=== PATIENT | male | born 1995 | race Caucasian/White ===

== ENCOUNTER 2017-05-09 07:54 | Emergency (ER) | payer OTHER ==
[~2017-05-09] VITALS: Ht 160 cm; Wt 54.5 kg
[2017-05-09 07:59] VITALS: Ht 160 cm; Wt 54.5 kg
[2017-05-09] MEDS ORDERED: HYDROmorphONE 1 MG/ML SYG IV STA ×2 (08:03→08:36)
[2017-05-09] MEDS ORDERED: ONDANSETRON 4 MG INJ IV STA (08:03)
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
--- NOTE | 2017-05-09 08:55 | RADRPT ---
PROCEDURE: Left shoulder series. CLINICAL INDICATION: Pain. TECHNIQUE: AP views of the shoulder were performed with internal and external rotation, as well as a transscapular Y view. COMPARISON: None. FINDINGS: Nondisplaced fracture of the left distal clavicle with associated overlying soft tissue swelling. T he glenohumeral and acromioclavicular joint spaces are intact. No findings of calcific tendonitis ar e present. IMPRESSION: Nondisplaced fracture of the left distal clavicle with associated overlying soft tissue swelling. RPTAT: QQ .Jasmeet Dawkins MD, Date Time Electronically viewed and signed by .Jasmeet Dawkins MD, on 05/09/2017 08:55 .M/
[2017-05-09] MEDS ORDERED: HYDR-902 PO (09:00)
[2017-05-09] MEDS ORDERED: ONDA4TAB14 PO (09:00)
[2017-05-09] MEDS ORDERED: IBUP800T25 PO (09:00)
[2017-05-09 09:07] VITALS: BP 114/97; PULSE 101; RESP 20; TEMP 98.3
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
== END 2017-05-09 09:08 | disposition home or self-care (01) ==
LOC: E/R 07:54
DX: S42.002A Fracture of unspecified part of left clavicle, initial encounter for closed fracture (principal); M25.512 Pain in left shoulder; V18.4XXA Pedal cycle driver injured in noncollision transport accident in traffic accident, initial encounter
CPT/HCPCS: 71010; 73000; 73030; 96374; 96375; J1170; J2405; Z7502

== ENCOUNTER 2017-05-17 17:38 | Emergency (ER) | payer OTHER ==
[~2017-05-17] VITALS: Ht 167.6 cm; Wt 58.5 kg
[~2017-05-17 17:38] MED LIST: HYDR-902 PO; IBUP800T25 PO; ONDA4TAB14 PO
[2017-05-17 17:43] VITALS: Ht 167.6 cm; Wt 58.5 kg
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
[2017-05-17] MEDS ORDERED: TRAM50TA2 PO (21:14)
[2017-05-17 21:22] VITALS: BP 140/77; PULSE 69; RESP 18; TEMP 98.3
== END 2017-05-17 21:24 | disposition home or self-care (01) ==
LOC: FTE 17:38
DX: S42.002D Fracture of unspecified part of left clavicle, subsequent encounter for fracture with routine healing (principal); Y04.8XXD Assault by other bodily force, subsequent encounter
CPT/HCPCS: 73000; Z7502